=== PATIENT | female | born 1985 | race Caucasian/White ===

== ENCOUNTER 2017-04-22 19:49 | Emergency (ER) | payer BC ==
[~2017-04-22] VITALS: Ht 170.2 cm; Wt 113.4 kg
[2017-04-22 20:01] VITALS: BP 143/90
--- NOTE | 2017-04-22 20:42 | PHYS DOC ---
Past Medical History Past Medical History: Depression, Other Additional Past Medical Histor: ADD Past Surgical History: Cholecystectomy, Hysterectomy Alcohol Use: Occasionally Drug Use: None Adult General Chief Complaint Chief Complaint: FOOT INJURY PAIN HPI HPI Patient is a 31 year old female presents to the emergency department stating that she fell to 3 steps when she was walking off of a porch. She states she is having pain in her right foot area. She denies any ankle pain or discomfort. Patient with peripheral pulses are 2+ cap refill brisk less than 2 seconds. Patient's capable moving her toes without difficulty. No bruising or discoloration noted. No swelling noted at this time. Patient states that she took 1 ibuprofen prior to arrival. Review of Systems Review of Systems Constitutional: Denies fever or chills [] Eyes: Denies change in visual acuity, redness, or eye pain [] HENT: Denies nasal congestion or sore throat [] Respiratory: Denies cough or shortness of breath [] Cardiovascular: No additional information not addressed in HPI [] GI: Denies abdominal pain, nausea, vomiting, bloody stools or diarrhea [] : Denies dysuria or hematuria [] Musculoskeletal: Denies back pain. Right foot pain Integument: Denies rash or skin lesions [] Neurologic: Denies headache, focal weakness or sensory changes [] Endocrine: Denies polyuria or polydipsia [] Physical Exam Physical Exam Constitutional: Well developed, well nourished, no acute distress, non-toxic appearance. [] HENT: Normocephalic, atraumatic, bilateral external ears normal, oropharynx moist, no oral exudates, nose normal. [] Eyes: PERRLA, EOMI, conjunctiva normal, no discharge. [] Neck: Normal range of motion, no tenderness, supple, no stridor. [] Cardiovascular:Heart rate regular rhythm Lungs & Thorax: No respiratory distress noted. Skin: Warm, dry, no erythema, no rash. [] Back: No tenderness Extremities: Right foot tenderness noted along the first second and third metatarsal areas. No discoloration, no bruising no swelling noted. Patient is able to move her toes with no difficulty. Patient's peripheral pulses are 2+ cap refill brisk less than 2 seconds. No cyanosis, no clubbing, ROM intact, no edema. [] Neurologic: Alert and oriented X 3, normal motor function, normal sensory function, no focal deficits noted. [] Psychologic: Affect normal, judgement normal, mood normal. [] Current Patient Data Vital Signs Vital Signs Date Time Temp Pulse Resp B/P (MAP) Pulse Ox O2 Delivery O2 Flow Rate FiO2 04/22/17 20:01 98.0 78 20 98 Room Air 98.0 EKG EKG [] Radiology/Procedures Radiology/Procedures [] Course & Med Decision Making Course & Med Decision Making Pertinent Labs and Imaging studies reviewed. (See chart for details) X-rays were negative for any broken or deformities of the bones per Dr Herrera. Patient will be placed in Collins wrap with a postop shoe and crutches. Recommended patient to follow up with orthopedic in the next week. Ice packs on 20 minutes off 20 minutes several times a day. Elevation as much as possible. Encourage patient to use ibuprofen 800 mg every 8 hours with food stop taking few develop an upset stomach. Patient will be discharged home in stable condition signs and symptoms to return back to emergency department been provided. All questions and concerns been answered at bedside. [] Dragon Disclaimer Dragon Disclaimer This electronic medical record was generated, in whole or in part, using a voice recognition dictation system. Departure Departure Impression: Primary Impression: Right foot sprain Disposition: HOME, SELF-CARE Condition: STABLE Referrals: UNKNOWN PCP NAME (PCP) GLENNY FRANCIS MD Patient Instructions: Crutch Use, [id number], Elastic Bandage and RICE, Foot Sprain-Brief Additional Instructions: Activity as tolerated. Use the crutches to help with ambulation until you can bear weight on the foot. Collins wrap for the next 5-7 days in the eye result 2 for the next week. Ice packs on 20 minutes off 20 minutes several times a day. Elevation as much as possible. Ibuprofen 800 mg every 8 hours with food stop taking few develop an upset stomach. Follow-up with orthopedic in the next 7-10 days. Return back to emergency prior signs symptoms of become worse. Problem Qualifiers Primary Impression: Right foot sprain Encounter type: initial encounter Qualified Codes: S93.601A - Unspecified sprain of right foot, initial encounter TANGELA MORA APRN Apr 22, 2017 20:42
[2017-04-22] MEDS ORDERED: IBUPROFEN 600 MG TABLET. PO ONE (20:45)
--- NOTE | 2017-04-23 08:05 | RAD ---
Right foot radiograph 04/22/2017 Clinical indication: Right foot injury with pain and swelling at the anterior foot. Comparison: None. Findings: No acute fracture or dislocation. Joint spaces are maintained. Soft tissues are grossly unremarkable. Impression: No acute osseous abnormality.
== END 2017-04-22 21:33 | disposition home or self-care (01) ==
LOC: ER 19:49
DX: S93.601A Unspecified sprain of right foot, initial encounter (principal); F98.8 Other specified behavioral and emotional disorders with onset usually occurring in childhood and adolescence; W10.8XXA Fall (on) (from) other stairs and steps, initial encounter; Y93.89 Activity, other specified; Y99.8 Other external cause status; Y92.89 Other specified places as the place of occurrence of the external cause
CPT/HCPCS: 73630; 99284-25